=== PATIENT | male | born 1960 | race Two or more races ===

== ENCOUNTER 2018-01-31 08:54 | Day surgery (SDC) | payer OTHER ==
[~2018-01-31 08:54] MED LIST: ACETAMINOPHEN 1,000 MG/100 ML BTL IV ONE; CEFAZOLIN 2 Gram 2 GM/50 ML BAG IVPB ONE
[2018-01-31] MEDS ORDERED: LIDOCAINE 1% MDV (10MG/ML) 20ML VIAL SQ ONE (08:55)
[2018-01-31] MEDS ORDERED: PROPOFOL 10 MG/ML VIAL IV ONE (08:55)
[2018-01-31] MEDS ORDERED: FENTANYL PF 100MCG/2ML VIAL IV ONE (08:55)
[2018-01-31] MEDS ORDERED: MIDAZOLAM HCL 2MG/2ML VIAL IV ONE (08:55)
[2018-01-31] MEDS ORDERED: BUPIVACAINE 0.25% W/EPI MPF 30ML VIAL IVP ONE (08:55)
--- NOTE | 2018-02-01 08:01 | Operative Note ---
DATE OF SURGERY: 01/31/2018 Surgeon: Ramon Osman DO PREOPERATIVE DIAGNOSIS: Back mass x2. POSTOPERATIVE DIAGNOSIS: Back mass x2. OPERATION: Excision of back mass x2. Indication: The patient is a 57-year-old male whom I saw about a month ago. He had an infected sebaceous cyst as well as an additional one on his upper back on the left. Since then, the infection has cleared. We did discuss excision. Risks, benefits, and alternatives were discussed. Risks include bleeding, infection, or recurrence. He understood this fully. Thereafter, consent was signed and questions answered. PROCEDURE: The patient was taken to the operating room and placed in a supine position. Local IV sedation was given per the department of anesthesia. The patient was rotated into right lateral position. His back was prepped and draped in the usual fashion. Starting on the outer masses, the area was anesthetized with a total of 4 mL of 0.25% Sensorcaine with epinephrine. The 6 mm punch biopsy was used to take out the puncta. This was carried down to the capsule of the sebaceous cyst which was dissected free from surrounding tissue with iris scissors. This was then passed off the field. This wound was irrigated and closed with 2-0 nylon. Identical procedure was done to the medial aspect which was somewhat larger measuring 3 x 2 cm. The patient tolerated the procedure well. CC: DO BERNY Gaitan
== END 2018-01-31 11:45 | disposition home or self-care (01) ==
LOC: SUR 08:54
PROVIDERS: ATTEND Surgery
DX: L72.3 Sebaceous cyst (principal); I10 Essential (primary) hypertension; E78.00 Pure hypercholesterolemia, unspecified